=== PATIENT | male | born 1990 | race Caucasian/White ===

== ENCOUNTER 2017-09-14 00:08 | Emergency (ER) | payer BC ==
[2017-09-14] MEDS ORDERED: LORazepam 1 MG Tab PO ONE (00:29)
--- NOTE | 2017-09-14 00:36 | EDM.PDOC ---
ED HPI GENERAL MEDICAL PROBLEM - General Chief Complaint: Upper Extremity Injury/Pain Stated Complaint: TREMOR IN NECK Time Seen by Provider: 09/14/17 00:15 - History of Present Illness INITIAL COMMENTS - FREE TEXT/NARRATIVE: HISTORY AND PHYSICAL: History of present illness: The patient is a 27-year-old male who states that he was diagnosed with a central tremor affecting his hands mostly when he was living in [facility] and was placed on propranolol which she said he had a prescription that about a year ago. He said he moved to [place] and now is currently living here locally and lost his follow-up but was only having intermittent symptoms and did not think to get a new prescription. Patient says that about 2 months ago he started having some tremor in his right hand which was affecting him at work and he took some of his medication that was and it seemed to help. Patient says that today he started having the tremor in bilateral hands but more the right and now it seems to be affecting him in his right neck and right face area. He does not have a headache nausea or vomiting no fevers or upper respiratory symptoms and no other systemic complaints. He has no weakness in his extremities more specifically in his right upper extremity. The patient did not take anything for this tremor. He's concerned because when it happened in the past has never lasted this long and he never recalls it being out in his neck and face area. Patient does drink caffeine and doesn't hydrate as much as he should but is not an excessive caffeine drinker. Patient has had no trauma to his head or neck and has no recent illnesses. Patient says he's been eating and drinking normally and has had no diarrhea or other GI or complaints. He has no chest pain or shortness of breath. He is not lightheaded or dizzy and has no visual disturbances. Review of systems: As per history of present illness and below otherwise all systems reviewed and negative. Past medical history: As per history of present illness and as reviewed below otherwise noncontributory. Surgical history: As per history of present illness and as reviewed below otherwise noncontributory. Social history: No reported history of drug or alcohol abuse. Family history: As per history of present illness and as reviewed below otherwise noncontributory. Physical exam: General: Well-developed well-nourished man who speaks clearly and easily in the ED and vital signs are noted by me. HEENT: Atraumatic, normocephalic, pupils reactive, negative for conjunctival pallor or scleral icterus, mucous membranes moist, throat clear, neck supple, nontender, trachea midline. Lungs: Clear to auscultation, breath sounds equal bilaterally, chest nontender. Heart: S1S2, regular rate and rhythm no overt murmurs Abdomen: Soft, nondistended, nontender. NABS Pelvis: Stable nontender. Genitourinary: Deferred. Rectal: Deferred. Extremities: Atraumatic, negative for cords or calf pain. Neurovascular unremarkable. Full range of motion of all extremities without defects or deficits Neuro: Awake, alert, oriented. Cranial nerves II through XII unremarkable. Cerebellum unremarkable. Motor and sensory unremarkable throughout. Exam nonfocal. Patient has a slight tremor on the right hand and fingers in a more pronounced tremor of his right hand and fingers which is more noticeable at rest but when the patient is holding his telephone or working on his telephone it is less noticeable. His right upper extremity exhibits no evidence of any tremulousness but the patient does have a slight tremor of his right facial musculature but is not twitching overtly. There is a slight tremor seen on the left side of the face but it is very subtle. Patient has strong muscles of the face neck and extremities without defects or deficits. He has normal tone throughout and normal gait into the ER. Diagnostics: CBC CMP magnesium CPK Therapeutics: Ativan We initially discussed using some Ativan to help the patient relax versus propranolol and the patient will like to try the Ativan first. I told him that he will likely need to be followed by our neurologist Dr. Lawrence and may need to go back on his medication but we would check his electrolytes and basic labs are seated accordingly. As he has not had any recent trauma and has no head neck or upper back pain imaging will be deferred and he is in agreement. Patient says that the tremor is almost always on the right side more than the left and the tremor of the hand is not is worrisome as the fact that is now occurring in his face. After Ativan patient has distant tremor of bilateral hands right greater than the left but there is no visible facial or neck tremor the patient says he does feel better. He would like to get a prescription for some propranolol to take at home and says that he is going back home in 24 hours and can see a neurologist there. I will also give him information about our neurologist but have recommended that he do get that follow-up and reasons on returning to the ED. He does not recall the dose that he was on so I will started at a low of 10 mg a day which he can increase to twice a day for persistent tremor Impression: Hand and face tremors, history of essential tremor Definitive disposition and diagnosis as appropriate pending reevaluation and review of above. neck area Pain Score (Numeric/FACES): 3 - Related Data Allergies Allergy/AdvReac Type Severity Reaction Status Date / Time egg Allergy Diarrhea Verified 09/14/17 00:21 hydrocodone Allergy Vomiting Verified 09/14/17 00:21 Home Meds: Home Meds . [No Known Home Meds] 09/14/17 [History] Past Medical History HEENT History: Reports: None Cardiovascular History: Reports: None Respiratory History: Reports: Other (See Below) Other Respiratory History: h/o Pneumonia Gastrointestinal History: Reports: None Genitourinary History: Reports: None Musculoskeletal History: Reports: None Other Neuro History: Central Tremors Psychiatric History: Reports: None Endocrine/Metabolic History: Reports: None Hematologic History: Reports: None Immunologic History: Reports: None Oncologic (Cancer) History: Reports: None Dermatologic History: Reports: None - Infectious Disease History Infectious Disease History: Reports: None - Past Surgical History Head Surgeries/Procedures: Reports: None HEENT Surgical History: Reports: Tonsillectomy GI Surgical History: Reports: Appendectomy Social & Family History - Family History Family Medical History: Noncontributory - Caffeine Use Caffeine Use: Reports: Soda - Recreational Drug Use Recreational Drug Use: No Review of Systems - Review of Systems Review Of Systems: ROS reveals no pertinent complaints other than HPI. ED EXAM, GENERAL - Physical Exam Exam: See Below (See dictation) Course - Vital Signs Last Recorded V/S: Last Vital Signs Temp 36.7 C 09/14/17 00:21 Pulse 76 09/14/17 00:21 Resp 18 09/14/17 00:21 BP 146/96 H 09/14/17 00:21 Pulse Ox 98 09/14/17 00:21 - Orders/Labs/Meds Labs: Laboratory Tests 09/14/17 09/14/17 Range/Units 00:41 00:41 WBC 8.83 (4.0-11.0) K/uL RBC 5.74 (4.50-5.90) M/uL Hgb 15.9 (13.0-17.0) g/dL Hct 46.8 (38.0-50.0) % MCV 81.5 (80.0-98.0) fL MCH 27.7 (27.0-32.0) pg MCHC 34.0 (31.0-37.0) g/dL RDW Std Deviation 39.2 (28.0-62.0) fl RDW Coeff of Leila 13 (11.0-15.0) % Plt Count 237 (150-400) K/uL MPV 10.20 (7.40-12.00) fL Neut % (Auto) 54.7 (48.0-80.0) % Lymph % (Auto) 31.6 (16.0-40.0) % [place] % (Auto) 9.1 (0.0-15.0) % Eos % (Auto) 4.0 (0.0-7.0) % Baso % (Auto) 0.6 (0.0-1.5) % Neut # (Auto) 4.8 (1.4-5.7) K/uL Lymph # (Auto) 2.8 H (0.6-2.4) K/uL [place] # (Auto) 0.8 (0.0-0.8) K/uL Eos # (Auto) 0.4 (0.0-0.7) K/uL Baso # (Auto) 0.1 (0.0-0.1) K/uL Nucleated RBC % 0.0 /100WBC Nucleated RBCs # 0 K/uL Sodium 140 (136-148) mmol/L Potassium 4.0 (3.5-5.1) mmol/L Chloride 103 (98-107) mmol/L Carbon Dioxide 27.0 (21.0-32.0) mmol/L BUN 13 (7.0-18.0) mg/dL Creatinine 1.2 (0.8-1.3) mg/dL Est Cr Clr Drug Dosing 93.78 mL/min Estimated GFR (MDRD) > 60.0 ml/min Glucose 119 H (74-106) mg/dL Calcium 9.7 (8.5-10.1) mg/dL Magnesium 1.6 (1.5-2.0) mg/dL Total Bilirubin 0.5 (0.2-1.0) mg/dL AST 18 (15-37) IU/L ALT 35 (14-63) IU/L Alkaline Phosphatase 68 (46-116) U/L Creatine Kinase 142 (26-308) U/L Total Protein 7.2 (6.4-8.2) g/dL Albumin 3.9 (3.4-5.0) g/dL Globulin 3.3 (2.0-3.5) g/dL Albumin/Globulin Ratio 1.2 L (1.3-2.8) Meds: Medications Discontinued Medications Generic Name Dose Route Start Last Admin Trade Name Freq PRN Reason Stop Dose Admin Lorazepam 1 mg 09/14/17 00:29 09/14/17 00:38 Ativan PO 09/14/17 00:30 1 mg ONETIME ONE Administration Departure - Departure Time of Disposition: 01:22 Disposition: Home, Self-Care 01 Condition: Good Clinical Impression: Tremor of face and hands - Discharge Information Referrals: PCP,None [Primary Care Provider] - Forms: ED Department Discharge Additional Instructions: The following information is given to patients seen in the emergency department who are being discharged to home. This information is to outline your options for follow-up care. We provide all patients seen in our emergency department with a follow-up referral. The need for follow-up, as well as the timing and circumstances, are variable depending upon the specifics of your emergency department visit. If you don't have a primary care physician on staff, we will provide you with a referral. We always advise you to contact your personal physician following an emergency department visit to inform them of the circumstance of the visit and for follow-up with them and/or the need for any referrals to a consulting specialist. The emergency department will also refer you to a specialist when appropriate. This referral assures that you have the opportunity for followup care with a specialist. All of these measure are taken in an effort to provide you with optimal care, which includes your followup. Under all circumstances we always encourage you to contact your private physician who remains a resource for coordinating your care. When calling for followup care, please make the office aware that this follow-up is from your recent emergency room visit. If for any reason you are refused follow-up, please contact the [facility] emergency department at and ask to speak to the emergency department charge nurse. [facility] Primary care- Internal Medicine and Family [facility] [address] [place] [id number] [facility] Specialty care-Neurology Professional Building [address] [place] [address], [address] [place] [address] Please contact and connect with one of our primary care physicians as well as our neurologist, Dr. Lawrence, for further care of your tremor. If you are going home please connect with your neurologist at home for further care and evaluation. Please try to reduce and/or eliminate caffeine use, please try to get rest and continue with hydration as we discussed. Return to ER as needed and as discussed. Start the propranolol you have been prescribed and please discontinue its use if you get lightheadedness dizzy.
[2017-09-14 01:08] LABS: CHLORIDE,CL 103 mmol/L (98-107); SODIUM,NA 140 mmol/L (136-148)
== END 2017-09-14 01:31 | disposition home or self-care (01) ==
LOC: MW.ED 00:08
DX: R25.1 Tremor, unspecified (principal); Z91.012 Allergy to eggs; Z88.5 Allergy status to narcotic agent
CPT/HCPCS: 36415; 80053; 82550; 83735; 85025; 99283; A9270